=== PATIENT | female | born 1970 | race Caucasian/White ===

== ENCOUNTER → 2023-08-05 15:50 | Outpatient (REF) | payer BC, SELFPAY | LOC: WDC 15:50 | PROVIDERS: ATTENDING PHYSICIAN Nurse Practitioner | DX: Z12.31 Encounter for screening mammogram for malignant neoplasm of breast (principal) | CPT/HCPCS: 77063; 77067 ==

== ENCOUNTER → 2024-02-23 06:14 | Day surgery (SDC) | payer BC, SELFPAY | LOC: GI 06:14 | PROVIDERS: ATTENDING PHYSICIAN Internal Medicine Gastroenterology | DX: K57.30 Diverticulosis of large intestine without perforation or abscess without bleeding (principal); Z80.0 Family history of malignant neoplasm of digestive organs | CPT/HCPCS: 45378 ==

== ENCOUNTER → 2024-08-10 11:42 | Outpatient (REF) | payer BC, SELFPAY | LOC: WDC 11:42 | PROVIDERS: ATTENDING PHYSICIAN Nurse Practitioner | DX: Z12.31 Encounter for screening mammogram for malignant neoplasm of breast (principal) | CPT/HCPCS: 77063; 77067 ==